=== PATIENT | male | born 1955 | race Caucasian/White ===

== ENCOUNTER 2019-03-10 19:52 | Inpatient (IN) | payer SELFPAY ==
--- NOTE | 2019-03-10 20:30 | ED ---
Syncope/Near Syncope - HPI Summary HPI Summary: The patient is a 63 y/o M presenting to [facility] arriving by ambulance with a chief complaint of syncope while attending a relative's [employer]. He states that he has had increased EtOH use intermittently for the last 3 days in addition to not eating food following recent family traumatic event after being sober for 9 years. He reports that at the , he started to feel lightheaded, and then he apparently passed out. His last drink was a few hours ago. He additionally reports nausea and vomiting, as well as CP that has resolved. He denies SOB and abd pain. He did not hit his head. Hx of HTN and heart arrhythmia. He is still feeling lightheaded in the ED. - History Of Current Complaint Chief Complaint: EDSyncope Time Seen by Provider: 03/10/19 20:03 Hx Obtained From: Patient Onset/Duration: Sudden Onset, Still Present - lightheadedness Context: Witnessed Activity At Onset: At Rest Associated Head Trauma: No Aggravating Factor(s): Other - increased EtOH use without eating Alleviating Factor(s): Nothing Associated Signs And Symptoms: Chest Pain - resolved, Lightheadedness, Vomiting , Other - POSITIVE: nausea, decreased food consumption; NEGATIVE: SOB, abd pain - Allergies/Home Medications Allergies/Adverse Reactions: Allergies Allergy/AdvReac Type Severity Reaction Status Date / Time No Known Allergies Allergy Verified 03/10/19 19:58 Home Medications: Home Medications Amlodipine Besylate [Norvasc] 5 mg PO DAILY 03/10/19 [History Confirmed 03/10/19 ] Losartan/HCTZ 100/25 (NF) [Hyzaar 100/25 (NF)] 1 tab PO DAILY 03/10/19 [History Confirmed 03/10/19] Metoprolol Succinate XL TAB* [Toprol XL TAB*] 100 mg PO DAILY 03/10/19 [History Confirmed 03/10/19] PMH/Surg Hx/FS Hx/Imm Hx Cardiovascular History: Reports: Hx Hypertension, Other Cardiovascular Problems/ Disorders - heart arrhythmia Psychiatric History: Reports: Hx Substance Abuse - alchoholism Infectious Disease History: No Infectious Disease History: Denies: Traveled Outside the [place] in Last 30 Days - Family History Known Family History: Positive: Hypertension - Social History Alcohol Use: increased used in last three days Hx Substance Use: No Substance Use Type: Reports: None Hx Tobacco Use: No Smoking Status (MU): Never Smoked Tobacco Review of Systems Positive: Chest Pain - resolved Negative: Shortness Of Breath Positive: Vomiting, Nausea, Other - no appetite Neurological: Other - lightheaded Positive: Other - increased EtOH use All Other Systems Reviewed And Are Negative: Yes Physical Exam - Summary Physical Exam Summary: Constitutional: Well-developed, Well-nourished, Alert. (-) Distressed Skin: Warm, Dry HENT: Normocephalic; Atraumatic Eyes: Conjunctiva normal Neck: Musculoskeletal ROM normal neck. (-) JVD, (-) Stridor, (-) Tracheal deviation Cardio: Rhythm regular, rate normal, Heart sounds normal; Intact distal pulses; The pedal pulses are 2+ and symmetric. Radial pulses are 2+ and symmetric. (-) Murmur Pulmonary/Chest wall: Effort normal. (-) Respiratory distress, (-) Wheezes, (-) Rales Abd: Soft, (-) tenderness, (-) Distension, (-) Guarding, (-) Rebound Musculoskeletal: (-) Edema Lymph: (-) Cervical adenopathy Neuro: Alert, Oriented x3 Psych: Mood and affect Normal, Tremulous and Anxious Triage Information Reviewed: Yes Vital Signs On Initial Exam: Initial Vitals Temp Pulse Resp BP Pulse Ox 97.5 F 90 20 144/111 98 03/10/19 19:55 03/10/19 19:55 03/10/19 19:55 03/10/19 19:55 03/10/19 19:55 Vital Signs Reviewed: Yes Diagnostics - Vital Signs Vital Signs Temp Pulse Resp BP Pulse Ox 03/10/19 19:55 97.5 F 90 20 144/111 98 - Laboratory Result Diagrams: 03/10/19 20:53 03/10/19 20:53 Lab Statement: Any lab studies that have been ordered have been reviewed, and results considered in the medical decision making process. - Radiology CXR Radiology Interpretation Completed By: Radiologist Summary of Radiographic Findings: No acute process. ED physician has reviewed this report. - EKG 20:10 Cardiac Rate: NL - 88 BPM EKG Rhythm: Sinus Rhythm Summary of EKG Findings: Normal sinus rhythm at 88 bpm, normal KS, normal QRS, normal QTc, normal axis, normal ST, normal T-waves, normal EKG. Course/Dx Assessment/Plan: The patient is a 63 y/o M presenting to [facility] arriving by ambulance with a chief complaint of three episodes of syncope after drinking EtOH for the last three days without much food consumption. Upon the physical exam, the patient appears to be tremulous and anxious. In the ED course, the patient was administered Ns and Ativan. Blood work reveals WBC of 11.5, Hgb of 12.5, Hct of 37, RDW of 16, MPV of 7.3, abs neuts of 9.5, sodium of 115, chloride of 80, anion gap of 12, glucose of 113, lactic acid of 3.4, total bili of 1.1. UA reveals protein, ketones, hyaline casts, and urine glucose. Toxicology reveals serum alcohol of 83. EKG is normal. CXR shows no acute process. I spoke with Dr. Tatum, hospitalist, at 21:30 concerning patients lab work; she accepts him for admission. He is diagnosed with hyponatremia, lactic acidosis, alcohol intoxication, alcoholism, and dehydration. Patient agrees with this plan and understands the need for admission at this time. alcohol intoxication/alcoholism requesting detox: admit for CIWA. lactic acidosis: IVF. hyponatremia: free water restrict. Admission - Diagnoses Differential Diagnosis/HQI/PQRI: Positive: Cerebral Vascular Accident Provider Diagnoses: Hyponatremia, Lactic acidosis, Alcohol intoxication, Alcoholism, Dehydration - Physician Notifications Discussed Care of Patient With: Amanda Tatum - hospitalist Time Discussed With Above Provider: 21:30 Instructed by Provider To: MD Will See In ED - Patient accepted for admission. Admit/Transition Orders Completed By ED Provider: No Discharge - Sign-Out/Discharge Documenting (check all that apply): Patient Departure - Patient will be admitted to [facility] for further care by Dr. Tatum. Patient Received Moderate/Deep Sedation with Procedure: No - Discharge Plan Condition: Stable Disposition: ADMITTED TO [facility] Referrals: No Primary Care Phys,NOPCP [Primary Care Provider] - - Billing Disposition and Condition Condition: STABLE Disposition: Admitted to [facility] - Attestation Statements Document Initiated by Scribe: Yes Documenting Scribe: Josie Sam Provider For Whom Scribe is Documenting (Include Credential): Dr. Andie Wilson MD Scribe Attestation: Josie Lee, scribed for Dr. Andie Wilson MD on 03/10/19 at 2221. Scribe Documentation Reviewed: Yes Provider Attestation: The documentation as recorded by the scribe, Josie Sam accurately reflects the service I personally performed and the decisions made by me, Dr. Andie Wilson MD Status of Scribe Document: Viewed
[2019-03-10 20:59] LABS: ABS Basophils 0.1 10^3/ul (0-0.2); ABS Lymphocytes 1.2 10^3/ul (1.0-4.8); ABS Monocytes 0.7 10^3/ul (0-0.8); ABS Neutrophils 9.5 10^3/ul (1.5-7.7); Eosinophil % 0.2 %; Hematocrit 37 % (42-52); Hemoglobin 12.5 g/dL (14.0-18.0); Lymphocyte % 10.3 %; Mean Corpuscular HGB Conc 34 g/dL (31-36); Mean Corpuscular Hemoglobin 28 pg (27-31); Mean Corpuscular Volume 81 fL (80-94); Mean Platelet Volume 7.3 fL (7.4-10.4); Nucleated Red Blood Cells % 0.1; Platelet Count 348 10^3/uL (150-450); Red Blood Count 4.53 10^6 /uL (4.18-5.48); Red Cell Distribution Width 16 % (10.5-15); White Blood Count 11.5 10^3/uL (3.5-10.8)
[2019-03-10 21:20] LABS: ALT 10 U/L (7-52); AST 17 U/L (13-39); Albumin 4.2 g/dL (3.2-5.2); Albumin/Globulin Ratio 1.6 (1-3); Alkaline Phosphatase 52 U/L (34-104); BUN/Creatinine Ratio 9.7 (8-20); Blood Urea Nitrogen 9 mg/dL (6-24); CO2 Carbon Dioxide 23 mmol/L (22-32); Calcium 9.2 mg/dL (8.6-10.3); Chloride 80 mmol/L (101-111); EGFR African American 99.3 (>60); EGFR Non-African American 82.1 (>60); Globulin 2.7 g/dL (2-4); Glucose 113 mg/dL (70-100); Potassium 3.6 mmol/L (3.5-5.0); Total Protein 6.9 g/dL (6.4-8.9)
[2019-03-10 21:21] LABS: Troponin I 0.03 ng/mL (<0.04)
[2019-03-10 21:25] LABS: Anion Gap 12 mmol/L (2-11); Sodium 115 mmol/L (135-145)
[2019-03-10] MEDS ORDERED: NS 0.9% 1000 ML** 2,520 ML IV ONE (21:30)
[2019-03-10 21:33] LABS: Acetaminophen < 15 mcg/mL; Alcohol 83 mg/dL (<10); Salicylate < 2.50 mg/dL (<30)
[2019-03-10 21:38] LABS: Urine Appearance Clear; Urine Bacteria Absent (Absent); Urine Bilirubin Negative (Negative); Urine Blood Negative (Negative); Urine Color Yellow; Urine Glucose 1+(50 mg/dL) (Negative); Urine Ketones Trace (Negative); Urine Nitrite Negative (Negative); Urine Protein 1+(30 mg/dL) (Negative); Urine Red Blood Cell Trace(0-2/hpf) (Absent); Urine Specific Gravity 1.011 (1.010-1.030); Urine Urobilinogen Negative (Negative); Urine White Blood Cell Trace(0-5/hpf) (Absent)
[2019-03-10] MEDS ORDERED: LORazepam INJ* 2 MG/ML 1 ML VIAL IV PUSH ONE (21:44)
[2019-03-10] MEDS ORDERED: Lorazepam PYXIS KEY PRN (21:44)
[2019-03-10 21:48] LABS: TSH (Thyroid Stimulating Horm) 1.64 mcIU/mL (0.34-5.60)
[2019-03-10 21:50] LABS: Urine Benzodiazepine Screen None Detected (None Detect); Urine Opiates Screen None Detected (None Detect)
[2019-03-10] MEDS ORDERED: Lorazepam PYXIS KEY ONE (21:51)
[2019-03-10] MEDS ORDERED: Thiamine IV* 100 MG/ML 2 ML VIAL IM ONE (22:14)
[2019-03-10] MEDS ORDERED: Acetaminophen TAB* 325 MG PO PRN ×2 (22:14→22:19)
[2019-03-10] MEDS ORDERED: NS 0.9% 1000 ML** 1,000 ML IV SCH (22:15)
[2019-03-10] MEDS ORDERED: hydrALAZINE IV* 20 MG/ML VIAL IV SLOW PU PRN (22:18)
[2019-03-10] MEDS ORDERED: Magnesium Hydroxide LIQ* 30 ML UDC PO PRN (22:19)
[2019-03-10] MEDS ORDERED: Al Hydrox/Mg Hydrox/Simet LIQ* 30 ML UDC PO PRN (22:19)
[2019-03-10 22:24] LABS: Activated Partial Thrombo Time 31.5 seconds (26.0-36.3); INR 1.08 (0.82-1.09)
[2019-03-10 22:33] LABS: BUN/Creatinine Ratio 10.6 (8-20); Calcium 8.8 mg/dL (8.6-10.3); EGFR African American 110.2 (>60); Potassium 3.4 mmol/L (3.5-5.0)
[2019-03-10] MEDS ORDERED: Magnesium Sulfate 2 GM IV* 2 GM/50 ML BAG IVPB ONE (22:37)
[2019-03-10] MEDS ORDERED: Potassium Chlor TAB* 20 MEQ TAB.ER PO ONE (22:37)
[2019-03-10 22:58] LABS: Magnesium 1.5 mg/dL (1.9-2.7)
[2019-03-10] MEDS ORDERED: LORazepam TAB(*) 1 MG PO SCH (23:00)
[2019-03-10] MEDS ORDERED: Metoprolol Tartrate TAB* 25 MG PO SCH (23:00)
--- NOTE | 2019-03-11 00:23 | HP ---
HISTORY AND PHYSICAL: DATE OF ADMISSION: 03/10/19 PRIMARY CARE PROVIDER: None locally. CHIEF COMPLAINT: Dizziness and passing out. HISTORY OF PRESENT ILLNESS: Herminio Munoz is a 63-year-old male with history of alcoholism, who admits to binge drinking as well as hypertension, who presented today for syncopal episodes. The patient stated that he was suffered for several months until 2 weeks ago when he got to know that his nephew who lives in [place] . He stated that he took on an [employer] train from [place] where he lives for the nephew's and he arrived today in the morning. He stated that for the past 2 weeks he has been drinking various quantities of alcohol beverages, mostly including beer and vodka. He drank more in the train. Today, when he was standing up at [facility], every time he tried to stand up, he would sit back down and there was 1 episode where he lost consciousness. Sister who was nearby but did not witness the episode by itself, stated that the patient has not had any incontinence and no tremors that could have been seizures. The patient's sodium upon arrival to the ED was 116. He is going to be admitted to the intensive care unit for severe hyponatremia. He stated that he has not eaten anything for the past at least 48 hours apart from drinking beer. PAST MEDICAL HISTORY: 1. Hypertension. 2. History of costochondritis like recurrent pain with stress test noted a year ago that was normal as per the patient and cardiac catheterization 7 years ago, which showed minimal coronary artery disease. 3. History of alcoholism. The patient has drunk most of his adult life, has history of alcohol withdrawal seizures. 4. History of hypertension. ALLERGIES: No known drug allergies. MEDICATIONS: 1. Toprol-XL 100 mg daily. 2. Amlodipine 5 mg daily. 3. Losartan/hydrochlorothiazide 100/25 one tablet daily. FAMILY HISTORY: Father in his mid 60s secondary to lung cancer. Mother in her 80s secondary to kidney disease. SOCIAL HISTORY: The patient is an alcoholic, admits to binge drinking. He lives with his in [place]. He is currently in social security and is not working. He used to be a pharmacy delivery driver. He smoked tobacco anywhere from half pack a day to 1 pack a day for 30 years and he quit 20 years ago. He denies any drug use. As a surrogate, he is naming his , who is currently in [place], Mar Munoz, phone [phone] as well as the patient's sister, Nat Artis, with a phone number [phone]. REVIEW OF SYSTEMS: Please see the history of present illness. All the remaining 12 systems were reviewed with the patient and were otherwise negative. PHYSICAL EXAMINATION GENERAL: The patient is a very pleasant 63-year-old male who is in no acute distress. Alert, awake, and oriented x3. VITAL SIGNS: Blood pressure 176/94, heart rate 95 and regular, respiratory rate 15, oxygen saturation 98% on room air, temperature of 97.9. HEENT: Head: Atraumatic, normocephalic. Eyes: Pupils are equal and reactive to light and accommodation. Oropharynx clear. Mucosa moist. NECK: Supple. No JVD, no bruits bilaterally. RESPIRATORY: Clear to auscultation bilaterally. CARDIOVASCULAR: Regular rate and rhythm. No murmur. ABDOMEN: Soft, nontender. Bowel sounds are present in all 4 quadrants. EXTREMITIES: There is no edema. Pulses are +2 bilaterally. No clubbing or cyanosis. NEUROLOGIC: On neuro evaluation, speech is clear. Cranial nerves II through XII grossly intact. Motor strength is 5/5 bilaterally. DIAGNOSTIC STUDIES/LAB DATA: Laboratory data and studies performed in the ED included portable chest x-ray, read by myself prior to the official radiologist' s report, showed normal cardiac silhouette with no evidence of pulmonary infiltrates. The patient's EKG showed normal sinus rhythm with a heart rate of 88 beats per minute with no significant ST changes. Sodium of 115, potassium 3.6, chloride 80, carbon dioxide 23, BUN 9, creatinine 0.93. Liver function tests unremarkable. Bilirubin 1.1. TSH of 1.64. Repeat outpatient lab work 2 hours later after close to 2.5 L of intravenous fluids bolused in the ED showed sodium of 118, potassium 3.4, chloride 85, carbon dioxide 20, BUN 9, creatinine 0.85. ASSESSMENT AND PLAN: 1. The patient is hypochloremic, hyponatremia likely due to prerenal causes, but also suspected excessive beer drinking and beer potomania. The patient received intravenous hydration in the ED and his sodium improved. I suspect his near syncope may be due to more dehydration and malnutrition than symptomatic hyponatremia per se. At this point, I will not institute 3% sodium chloride solution replacement, but continue normal saline replacement with basic metabolic panel to be drawn every 4 hours. The patient is going to be in the ICU. Seizure precautions at this point for that. 2. Due to history of alcoholism, alcohol withdrawal seizures, the patient is going to be placed on Ativan withdrawal protocol with Ativan taper due to alcoholic seizures. Thiamine and folate is going to be ordered also. 3. For the patient's hypertension, the patient is going to be continued on his Toprol and amlodipine with addition to hydralazine. For the time being, the hydrochlorothiazide and losartan are going to be held. 4. For DVT prophylaxis, the patient is going to be placed on heparin subcutaneously. 5. The patient's code status is full. His surrogate is his and he also asked his sister to be informed. 6. The patient has problems with insurance. He stated that he is self-pay. He is very concerned about it. Also, due to his history of alcoholism, social research assistant was asked to consult the patient. TIME SPENT: Approximately 80 minutes was spent on admission of this patient, more than half that time was spent [id number] with the patient during the interview and physical exam. [id number]/[facility] #: [id number] RUFINA
[2019-03-11] MEDS: LORazepam TAB(*) 1 MG PO SCH ×3 (02:04→15:55)
[2019-03-11 03:43] LABS: ABS Eosinophils 0.1 10^3/ul (0-0.6); ABS Lymphocytes 1.9 10^3/ul (1.0-4.8); ABS Monocytes 1.1 10^3/ul (0-0.8); ABS Neutrophils 6.6 10^3/ul (1.5-7.7); Eosinophil % 1.1 %; Hematocrit 33 % (42-52); Hemoglobin 11.2 g/dL (14.0-18.0); Lymphocyte % 19.6 %; Mean Corpuscular HGB Conc 34 g/dL (31-36); Mean Corpuscular Hemoglobin 28 pg (27-31); Mean Corpuscular Volume 81 fL (80-94); Mean Platelet Volume 7.4 fL (7.4-10.4); Platelet Count 335 10^3/uL (150-450); Red Blood Count 4.08 10^6 /uL (4.18-5.48); Red Cell Distribution Width 16 % (10.5-15); White Blood Count 9.7 10^3/uL (3.5-10.8)
[2019-03-11 03:55] LABS: BUN/Creatinine Ratio 9.7 (8-20); Calcium 8.6 mg/dL (8.6-10.3); EGFR African American 99.3 (>60); EGFR Non-African American 82.1 (>60); Potassium 3.4 mmol/L (3.5-5.0)
[2019-03-11 03:58] LABS: Troponin I 0.03 ng/mL (<0.04)
[2019-03-11] MEDS ORDERED: Potassium Chlor TAB* 20 MEQ TAB.ER PO ONE (05:10)
[2019-03-11] MEDS: Heparin VIAL(*) 5000 UNITS/ML VIAL (FIVE THOUSAND) SUBCUT SCH ×3 (05:38→21:39)
[2019-03-11] MEDS: Folic Acid TAB* 1 MG PO SCH (08:39)
[2019-03-11] MEDS: Multivitamins/Minerals TAB PO SCH (08:40)
[2019-03-11] MEDS: amLODIPine TAB* 5 MG PO SCH (08:40)
[2019-03-11] MEDS: Magnesium Oxide TAB* 400 MG PO SCH (08:40)
[2019-03-11] MEDS: Metoprolol Succinate XL TAB* 100 MG PO SCH (08:40)
[2019-03-11] MEDS: Thiamine TAB* 100 MG TAB PO SCH (08:40)
[2019-03-11 09:59] LABS: BUN/Creatinine Ratio 10.8 (8-20); Calcium 8.6 mg/dL (8.6-10.3); EGFR African American 99.3 (>60); EGFR Non-African American 82.1 (>60)
[2019-03-11 11:10] LABS: Calcium 8.7 mg/dL (8.6-10.3)
[2019-03-11 11:13] LABS: Free T4 1.1 ng/dL (0.61-1.12)
[2019-03-11 11:16] LABS: BUN/Creatinine Ratio 10.2 (8-20); EGFR African American 93.5 (>60); EGFR Non-African American 77.2 (>60)
[2019-03-11 11:42] LABS: Urine Potassium Concentration 8.3 mmol/L
[2019-03-11 11:50] LABS: Ur Urea Nitrogen Concentration 200 mg/dL; Urine Sodium Concentration < 18 mmol/L
[2019-03-11 12:00] LABS: Potassium 4.4 mmol/L (3.5-5.0)
[2019-03-11 14:17] LABS: BUN/Creatinine Ratio 11.8 (8-20); Calcium 8.5 mg/dL (8.6-10.3); EGFR African American 89.3 (>60); EGFR Non-African American 73.8 (>60); Potassium 3.9 mmol/L (3.5-5.0)
--- NOTE | 2019-03-11 16:40 | PN ---
Subjective Date of Service: 03/11/19 Interval History: Pt seen and examined. Meds and labs reviewed. CC: N/A ROS: Denied LUBIN/dizziness, F/C, N/V, CP, SOB, increased cough, sputum production , abd pain, diarrhea, constipation, dysuria, myalgias, arthralgias, throat pain , and new skin lesions. The rest of the 14 point ROS are unremarkable. PHYSICAL EXAM: GEN APPEARANCE: Awake, not in acute distress HEENT: NC/AT, PERRLA, moist oral mucosa, (-) throat erythema NECK: Soft, supple, (-) cervical LAD, (-)JVD HEART: S1S2 WNL, RRR, No MRG CHEST: CTA, BL, GAE, No W/R/R ABD: Soft, ND/NT, NABS 4x Q EXT: No C/C/E SKIN: Warm to touch PSYCH: No active psychosis, hallucinations, depression, SI/HI Objective Active Medications: Acetaminophen (Tylenol Tab*) 650 mg PO Q4H PRN PRN Reason: FEVER/PAIN Al Hydrox/Mg Hydrox/Simethicone (Maalox Plus*) 30 ml PO Q6H PRN PRN Reason: INDIGESTION Amlodipine Besylate (Norvasc Tab*) 10 mg PO DAILY [facility] Last Admin: 03/11/19 08:40 Dose: 10 mg Folic Acid (Folvite Tab*) 1 mg PO DAILY [facility] Last Admin: 03/11/19 08:39 Dose: 1 mg Heparin Sodium (Porcine) (Heparin Vial(*)) 5,000 units SUBCUT Q8HR [facility] Last Admin: 03/11/19 13:41 Dose: 5,000 units Hydralazine HCl (Apresoline Iv*) 5 mg IV SLOW PU Q6H PRN PRN Reason: HTN Lorazepam (Ativan Tab(*)) 0 - 6 mg PO .[facility] PROTOCOL [facility]; Protocol Lorazepam (Ativan Tab(*)) 2 mg PO Q12H [facility]; Taper Stop: 03/13/19 18:59 Last Admin: 03/11/19 15:55 Dose: 2 mg Magnesium Hydroxide (Milk Of Magnesia Liq*) 30 ml PO Q4H PRN PRN Reason: CONSTIPATION Magnesium Oxide (Magox 400 Tab*) 800 mg PO DAILY [facility] Last Admin: 03/11/19 08:40 Dose: 800 mg Metoprolol Succinate (Toprol Xl Tab*) 100 mg PO DAILY [facility] Last Admin: 03/11/19 08:40 Dose: 100 mg Miscellaneous (Ativan Pyxis Regalado) 1 ea N/A .ATIVAN IV REGALADO PRN PRN Reason: PYXIS REGALADO Multivitamins/Minerals (Theragran/Minerals Tab*) 1 tab PO DAILY [facility] Last Admin: 03/11/19 08:40 Dose: 1 tab Thiamine HCl (Vitamin B-1 Tab*) 100 mg PO DAILY [facility] Last Admin: 03/11/19 08:40 Dose: 100 mg Vital Signs - 8 hr 03/11/19 03/11/19 03/11/19 08:39 09:00 10:00 Temperature Pulse Rate 101 86 Respiratory 14 17 16 Rate Blood Pressure 145/96 (mmHg) O2 Sat by Pulse 96 95 Oximetry 03/11/19 03/11/19 03/11/19 10:11 11:00 12:00 Temperature 99.2 F Pulse Rate 84 79 80 Respiratory 18 15 22 Rate Blood Pressure 123/71 133/76 (mmHg) O2 Sat by Pulse 96 95 96 Oximetry 03/11/19 03/11/19 03/11/19 12:15 13:00 14:00 Temperature Pulse Rate 82 70 87 Respiratory 18 19 18 Rate Blood Pressure 127/80 120/69 127/70 (mmHg) O2 Sat by Pulse 97 90 93 Oximetry 03/11/19 03/11/19 15:00 15:55 Temperature 98.9 F Pulse Rate 74 Respiratory 15 14 Rate Blood Pressure 107/62 (mmHg) O2 Sat by Pulse 94 Oximetry Oxygen Devices in Use Now: None Result Diagrams: 03/11/19 03:28 03/11/19 15:55 Microbiology and Other Data: Microbiology 03/11/19 00:02 Nasal Screen MRSA (PCR) - Final Nasal Mrsa Not Detected Assess/Plan/Problems-Billing Assessment: - Patient Problems (1) Hyponatremia Current Visit: Yes Status: Acute Code(s): E87.1 - HYPO-OSMOLALITY AND HYPONATREMIA SNOMED Code(s): 03965558 Comment: #Euvolemic hyponatremia: -History and PE is suggestive of beer potomania vs possible DHN to due to hyperchloremia especially given urine s.g. in the lower limits of normal on admission; pt was also receiving normal saline for hyperchloremia; however, this was D/Cd this AM and pt placed on fluid restriction given euvolemia -Urine osm, however, today suggests SIADH with low urine Sodium and Uosm>100; CXR in NAD -Given recent long bus trip to [place], will obtain at least D-dimer given recent syncopal episode given pt does not seep to complain of CP and/or SOB; together with possible SIADH, consider pulmonary cause not otherwise seen on CXR in AM if w/elevated D-dimer for age? However, it is also possible that NS has improved urine lytes since admission and on presentation had beer potomania -Improving Sodium levels w/1L fluid restriction---for repeat testingawaiting labs to see if can de-escalate restriction (2) Alcohol intoxication Current Visit: Yes Status: Acute Comment: -Advised life-style modifications -[facility] place [facility] protocol -Continue watchful waiting (3) HTN (hypertension) Current Visit: Yes Status: Acute Code(s): I10 - ESSENTIAL (PRIMARY) HYPERTENSION SNOMED Code(s): 32904533 Comment: -Well-controlled -Continue Amlodipine and Metoprolol (4) DVT prophylaxis Current Visit: Yes Status: Acute Code(s): Z29.9 - ENCOUNTER FOR PROPHYLACTIC MEASURES, UNSPECIFIED SNOMED Code(s): 803208211 Comment: -Continue Heparin SQ Status and Disposition: -For transfer to -May go off tele for tests and/or transfers
[2019-03-11 18:46] LABS: BUN/Creatinine Ratio 10.9 (8-20); Calcium 8.6 mg/dL (8.6-10.3); EGFR African American 68.1 (>60); EGFR Non-African American 56.3 (>60); Potassium 4.1 mmol/L (3.5-5.0)
[2019-03-11] MEDS ORDERED: LORazepam TAB(*) 1 MG PO PRN (19:38)
--- NOTE | 2019-03-11 19:39 | PN ---
Progress Note - Progress Note Date of Service: 03/11/19 Note: D/w RN, pt had not used [facility] in the past 24H. [facility]
[2019-03-11 22:54] LABS: BUN/Creatinine Ratio 13.2 (8-20); Calcium 8.6 mg/dL (8.6-10.3); EGFR African American 68.1 (>60); EGFR Non-African American 56.3 (>60); Potassium 4.2 mmol/L (3.5-5.0)
[2019-03-12] MEDS: LORazepam TAB(*) 1 MG PO SCH ×2 (03:31→14:30)
[2019-03-12 05:56] LABS: ABS Basophils 0.1 10^3/ul (0-0.2); ABS Eosinophils 0.3 10^3/ul (0-0.6); ABS Lymphocytes 2.2 10^3/ul (1.0-4.8); ABS Neutrophils 4.2 10^3/ul (1.5-7.7); Eosinophil % 4.3 %; Hematocrit 33 % (42-52); Hemoglobin 11.1 g/dL (14.0-18.0); Lymphocyte % 27.8 %; Mean Corpuscular HGB Conc 34 g/dL (31-36); Mean Corpuscular Hemoglobin 28 pg (27-31); Mean Corpuscular Volume 83 fL (80-94); Mean Platelet Volume 8.1 fL (7.4-10.4); Platelet Count 296 10^3/uL (150-450); Red Blood Count 4.02 10^6 /uL (4.18-5.48); Red Cell Distribution Width 16 % (10.5-15); White Blood Count 7.8 10^3/uL (3.5-10.8)
[2019-03-12] MEDS: Heparin VIAL(*) 5000 UNITS/ML VIAL (FIVE THOUSAND) SUBCUT SCH ×3 (06:12→21:34)
[2019-03-12 06:21] LABS: Albumin 3.4 g/dL (3.2-5.2); Albumin/Globulin Ratio 1.5 (1-3); BUN/Creatinine Ratio 13.6 (8-20); Calcium 8.5 mg/dL (8.6-10.3); EGFR African American 75.4 (>60); EGFR Non-African American 62.3 (>60); Globulin 2.3 g/dL (2-4); Phosphorus 2.3 mg/dL (2.5-5.0); Potassium 3.9 mmol/L (3.5-5.0); Total Bilirubin 0.7 mg/dL (0.2-1.0); Total Protein 5.7 g/dL (6.4-8.9)
[2019-03-12] MEDS: Folic Acid TAB* 1 MG PO SCH (07:44)
[2019-03-12] MEDS: Multivitamins/Minerals TAB PO SCH (07:45)
[2019-03-12] MEDS: Thiamine TAB* 100 MG TAB PO SCH (07:45)
[2019-03-12] MEDS: Metoprolol Succinate XL TAB* 100 MG PO SCH (07:45)
[2019-03-12] MEDS: Magnesium Oxide TAB* 400 MG PO SCH (07:45)
[2019-03-12] MEDS: amLODIPine TAB* 5 MG PO SCH (07:45)
--- NOTE | 2019-03-12 15:38 | PN ---
Subjective Date of Service: 03/12/19 Interval History: Pt seen and examined. Meds and labs reviewed. CC: N/A ROS: Denied LUBIN/dizziness, F/C, N/V, CP, SOB, increased cough, sputum production , abd pain, diarrhea, constipation, dysuria, myalgias, arthralgias, throat pain , and new skin lesions. The rest of the 14 point ROS are unremarkable. PHYSICAL EXAM: GEN APPEARANCE: Awake, not in acute distress HEENT: NC/AT, PERRLA, moist oral mucosa, (-) throat erythema NECK: Soft, supple, (-) cervical LAD, (-)JVD HEART: S1S2 WNL, RRR, No MRG CHEST: CTA, BL, GAE, No W/R/R ABD: Soft, ND/NT, NABS 4x Q EXT: No C/C/E SKIN: Warm to touch PSYCH: No active psychosis, hallucinations, depression, SI/HI Objective Active Medications: Acetaminophen (Tylenol Tab*) 650 mg PO Q4H PRN PRN Reason: FEVER/PAIN Al Hydrox/Mg Hydrox/Simethicone (Maalox Plus*) 30 ml PO Q6H PRN PRN Reason: INDIGESTION Amlodipine Besylate (Norvasc Tab*) 10 mg PO DAILY [facility] Last Admin: 03/12/19 07:45 Dose: 10 mg Folic Acid (Folvite Tab*) 1 mg PO DAILY [facility] Last Admin: 03/12/19 07:44 Dose: 1 mg Heparin Sodium (Porcine) (Heparin Vial(*)) 5,000 units SUBCUT Q8HR [facility] Last Admin: 03/12/19 14:30 Dose: 5,000 units Hydralazine HCl (Apresoline Iv*) 5 mg IV SLOW PU Q6H PRN PRN Reason: HTN Sodium Chloride (Ns 0.9% 1000 Ml) 1,000 mls @ 75 mls/hr IV PER RATE BOB Stop: 03/14/19 05:04 Lorazepam (Ativan Tab(*)) 2 mg PO Q12H [facility]; Taper Stop: 03/13/19 18:59 Last Admin: 03/12/19 14:30 Dose: 2 mg Lorazepam (Ativan Tab(*)) 1 mg PO Q4H PRN PRN Reason: ANXIETY Magnesium Hydroxide (Milk Of Magnesia Liq*) 30 ml PO Q4H PRN PRN Reason: CONSTIPATION Magnesium Oxide (Magox 400 Tab*) 800 mg PO DAILY [facility] Last Admin: 03/12/19 07:45 Dose: 800 mg Metoprolol Succinate (Toprol Xl Tab*) 100 mg PO DAILY [facility] Last Admin: 03/12/19 07:45 Dose: 100 mg Miscellaneous (Ativan Pyxis Regalado) 1 ea N/A .ATIVAN IV REGALADO PRN PRN Reason: PYXIS REGALADO Multivitamins/Minerals (Theragran/Minerals Tab*) 1 tab PO DAILY [facility] Last Admin: 03/12/19 07:45 Dose: 1 tab Thiamine HCl (Vitamin B-1 Tab*) 100 mg PO DAILY [facility] Last Admin: 03/12/19 07:45 Dose: 100 mg Vital Signs - 8 hr 03/12/19 03/12/19 03/12/19 09:50 09:59 11:11 Temperature 97.5 F Pulse Rate 80 88 71 Respiratory 16 Rate Blood Pressure 139/71 119/75 122/66 (mmHg) O2 Sat by Pulse 100 100 Oximetry 03/12/19 03/12/19 14:30 15:34 Temperature 98.2 F Pulse Rate 66 Respiratory 18 16 Rate Blood Pressure 107/60 (mmHg) O2 Sat by Pulse 100 Oximetry Oxygen Devices in Use Now: None Result Diagrams: 03/12/19 04:51 03/12/19 14:02 Microbiology and Other Data: Microbiology 03/11/19 00:02 Nasal Screen MRSA (PCR) - Final Nasal Mrsa Not Detected Assess/Plan/Problems-Billing Assessment: - Patient Problems (1) Hyponatremia Current Visit: Yes Status: Acute Code(s): E87.1 - HYPO-OSMOLALITY AND HYPONATREMIA SNOMED Code(s): 04098726 Comment: #Euvolemic hyponatremia: -History and PE is suggestive of beer potomania vs possible DHN to due to hypochloremia especially given urine s.g. in the lower limits of normal on admission; pt was also receiving normal saline for hypochloremia; however, this was D/Cd this AM and pt placed on fluid restriction given euvolemia -Urine osm, however, today suggests SIADH with low urine Sodium and Uosm>100; however, unclear whether UOsm would have been affected w/NS given on presentation; CXR in NAD -FE-Urea =57.31% and suggestive of euvolemia -D-dimer WNL -Improving Sodium levels w/1L fluid restriction---for repeat testingawaiting labs to see if can de-escalate restriction -Hypochloremia possibly due to dilute PO fluids/alcohol imbibed in trip and Urine Osm may have normalized with initial NS given (2) Syncope Current Visit: Yes Status: Acute Code(s): R55 - SYNCOPE AND COLLAPSE SNOMED Code(s): 792404042 Comment: -D-dimer R/O PE/VTE as cause -2D echo (02/02/19; from [facility], [place]): LV normal; mild concentric LVH; EF =60%, grade I diastolic dysfunction; mild MR and TR; moderate AR -Carotid U/S (02/01/19; from same hospital above): <50% PATRICIO on BL ICA -Pt found to be orthostatic -Euvolemic hyponatremia improving -Likely cause of syncope is orthostasis in the setting of hyponatremia; given urine Osm is lower than Osm of NS at 308, one would expect that sodium would continue to improve with PO fluid restriction in place to address orthostasis in the setting of hyponatremia (3) Alcohol intoxication Current Visit: Yes Status: Acute Comment: -Advised life-style modifications -Continue watchful waiting (4) HTN (hypertension) Current Visit: Yes Status: Acute Code(s): I10 - ESSENTIAL (PRIMARY) HYPERTENSION SNOMED Code(s): 97077251 Comment: -Well-controlled -Continue Amlodipine and Metoprolol (5) DVT prophylaxis Current Visit: Yes Status: Acute Code(s): Z29.9 - ENCOUNTER FOR PROPHYLACTIC MEASURES, UNSPECIFIED SNOMED Code(s): 034834364 Comment: -Continue Heparin SQ Status and Disposition: -Will await PT eval -For repeat orthostatic VS in AM -For possible D/C in 1-2 days
[2019-03-12] MEDS: NS 0.9% 1000 ML** 1,000 ML IV SCH (15:53)
[2019-03-13] MEDS: LORazepam TAB(*) 1 MG PO SCH (03:14)
[2019-03-13] MEDS: NS 0.9% 1000 ML** 1,000 ML IV SCH (05:40)
[2019-03-13] MEDS: Heparin VIAL(*) 5000 UNITS/ML VIAL (FIVE THOUSAND) SUBCUT SCH (05:41)
[2019-03-13 06:38] LABS: ABS Basophils 0.3 10^3/ul (0-0.2); ABS Eosinophils 0.4 10^3/ul (0-0.6); ABS Lymphocytes 2.1 10^3/ul (1.0-4.8); ABS Monocytes 0.9 10^3/ul (0-0.8); ABS Neutrophils 3.9 10^3/ul (1.5-7.7); Eosinophil % 5.6 %; Hematocrit 31 % (42-52); Hemoglobin 10.4 g/dL (14.0-18.0); Lymphocyte % 27.7 %; Mean Corpuscular HGB Conc 33 g/dL (31-36); Mean Corpuscular Hemoglobin 28 pg (27-31); Mean Corpuscular Volume 83 fL (80-94); Mean Platelet Volume 8.3 fL (7.4-10.4); Platelet Count 284 10^3/uL (150-450); Red Blood Count 3.76 10^6 /uL (4.18-5.48); Red Cell Distribution Width 16 % (10.5-15); White Blood Count 7.6 10^3/uL (3.5-10.8)
[2019-03-13 07:00] LABS: Albumin 3.2 g/dL (3.2-5.2); Albumin/Globulin Ratio 1.5 (1-3); Calcium 8.5 mg/dL (8.6-10.3); EGFR African American 76.2 (>60); Globulin 2.2 g/dL (2-4); Magnesium 1.8 mg/dL (1.9-2.7); Phosphorus 2.7 mg/dL (2.5-5.0); Potassium 4.2 mmol/L (3.5-5.0); Total Bilirubin 0.5 mg/dL (0.2-1.0); Total Protein 5.4 g/dL (6.4-8.9)
[2019-03-13 08:51] VITALS: BP 115/78
[2019-03-13] MEDS ORDERED: Magnesium Sulfate 2 GM IV* 2 GM/50 ML BAG IVPB ONE (09:04)
[2019-03-13] MEDS: Metoprolol Succinate XL TAB* 100 MG PO SCH (09:35)
[2019-03-13] MEDS: Multivitamins/Minerals TAB PO SCH (09:36)
[2019-03-13] MEDS: Folic Acid TAB* 1 MG PO SCH (09:36)
[2019-03-13] MEDS: Thiamine TAB* 100 MG TAB PO SCH (09:36)
[2019-03-13] MEDS: amLODIPine TAB* 5 MG PO SCH (09:36)
[2019-03-13] MEDS: Magnesium Oxide TAB* 400 MG PO SCH (09:36)
--- NOTE | 2019-03-13 15:09 | DS ---
ADDENDUM NOW INCLUDED ON THIS REPORT CC: Dr. Amanda Tatum; Andie Wilson MD * DISCHARGE SUMMARY: DATE OF ADMISSION: 03/10/19 DATE OF DISCHARGE: 03/13/19 DISCHARGE CONDITION: Stable. DISCHARGE DISPOSITION: Home. DISCHARGE DIAGNOSES: Are as follows: 1. Euvolemic hypochloremic hyponatremia, improved; likely due to beer potomania. 2. Syncope, multifactorial due to: A. Orthostasis, likely due to autonomic dysfunction. B. Ethanol intoxication/abuse. C. Hyponatremia due to beer potomania. D. Polypharmacy/antihypertensive. 3. Coronary artery disease, history of, minimal per previous cath. 4. Hypomagnesemia, corrected; primary care physician to follow up level in 2 weeks. DISCHARGE MEDICATIONS: Are as follows: 1. Magnesium oxide 800 mg p.o. daily. 2. Metoprolol succinate 100 mg p.o. daily. 3. Multivitamins 1 tab p.o. daily, take only for 1 month. 4. Losartan 40 mg p.o. daily. 5. Omeprazole 20 mg p.o. daily. HISTORY OF PRESENT ILLNESS/HOSPITAL COURSE: The patient is a 63-year-old gentleman with a history of alcoholism, hypertension, and minimal coronary artery disease from previous catheterization 7 years prior without any stents, who presented and admitted on 03/10/19 due to dizziness and syncope. He was subsequently found to have hypochloremic hyponatremia, and on physical exam, the patient did not look dehydrated, although possible mild dehydration in the setting of beer potomania was suspected and was unclear on initial presentation. Given that he mentioned that he has been traveling in a bus from [place] to [place] and has not been eating and has been drinking a lot of beers and vodka on his way. He was initially placed on normal saline, which was subsequently discontinued given his urine lytes is suggestive of beer potomania versus SIADH and his urinary osmolality above 100, but in the low side of urine osmolality along with his diluted specific urine gravity and euvolemia on presentation, when taken together is suggestive of beer potomania that had improvement of Urine Osm due to initial IVF therapy on presentation. Subsequent fluid restriction has improved his sodium levels further and TSH was not suggestive of hypothyroidism and his AM cortisol level was found to be normal. Upon reinstituting fluid restriction, he was placed back on normal saline to correct his hypochloremia. He was also found to be hypomagnesemic and has been corrected and had been given oral supplementations for this. Given he mentioned syncope as well, syncopal workup has been initiated. However , we obtained recent documentations from [facility] regarding previous 2D echo that was just recently done last month. A 2D echo, which reveals left ventricle that was read as normal with mild concentric LVH with an EF of 60% with grade 1 diastolic dysfunction with mild MR and TR and moderate AR. Carotid ultrasound revealed less than 50% carotid artery stenosis on the bilateral internal carotid arteries. He was also found to be orthostatic, which was thought to be the primary contributing factor that led to syncope along with his electrolyte abnormality such as hyponatremia and hypomagnesemia along with him being intoxicated on admission. He had been advised to follow up and/or call his PCP within 3 days post discharge and to repeat his sodium levels in 7 days and to touch base with his PCP and discuss the next best step/any future followup, etc. He was also advised to slowly rise from a supine and/or sitting position to standing position and to try to spend at least 2 to 3 minutes arron his legs as he slowly rises to ambulate. He was informed that given his risks for falls and only minimal history of coronary artery disease without stent, he was advised to discuss the risks and benefits of aspirin/antiplatelet therapy with his PCP. He was advised that if his symptoms resume or develop new ones or feel unwell for any reason to call his PCP first, and if his PCP is unable to entertain him due to scheduling issues alone, to call [facility] if issue is considered nonemergent. He was advised to call my office regarding any questions or concerns or further clarifications regarding his discharge plans and/or prescriptions and to take his medications as prescribed. REVIEW OF SYSTEMS: On review of systems prior to discharge, the patient denied any current headache, dizziness, fever, chills, nausea, vomiting, chest pain, shortness of breath, increased coughing and/or sputum production, abdominal pain , diarrhea, constipation, pain and/or increased frequency on urination, myalgias , arthralgias, throat pain, or new skin lesions. The rest of the 14-point review of systems is otherwise unremarkable. PHYSICAL EXAMINATION: Shows the most recent vital signs of records with blood pressure of 117/63, 64 beats per minute heart rate, 20 per minute respiratory rate, saturating at 97% on room air, and 98.1 degrees Fahrenheit. Subsequent orthostatic vital signs reveal the patient is orthostatic as described. The patient is however asymptomatic other than mild dizziness on standing. General Appearance: The patient is awake, alert, and oriented x4, not in acute distress. HEENT: Normocephalic, atraumatic. PERRLA. Extraocular muscles intact. Negative for icterus. Moist oral mucosa. Negative throat erythema. Neck is soft, supple, with no cervical lymphadenopathy. No JVD. Heart: S1, S2 within normal limits. Regular rate and rhythm. No murmurs, rubs, or gallops. Chest: Clear to auscultation bilaterally. Good air entry. No wheezes, rales, or rhonchi. Abdomen is soft, nondistended, and nontender. Normoactive bowel sounds x4 quadrants. Extremities: No cyanosis, clubbing, or edema. Psychiatric: No active psychosis, depression, suicidal or homicidal ideations. Skin is warm to touch. TIME SPENT: The total time spent evaluating the patient, reviewing pertinent data, and appropriate documentation is 1 hour. ADDENDUM: Please modify the discharge medications. Instead of losartan 40 mg p.o. daily, the patient will be placed on losartan 25 mg p.o. daily given the unavailability of the previous dose to be dispensed by our local pharmacy. [id number] #: [id number]/CPS #: [id number] [facility]
--- NOTE | 2019-03-13 19:42 | DS ---
DISCHARGE SUMMARY: ADDENDUM: Please modify the discharge medications. Instead of losartan 40 mg p.o. daily, the patient will be placed on losartan 25 mg p.o. daily given the unavailability of the previous dose to be dispensed by our local pharmacy. [id number] #: [id number] [facility]
== END 2019-03-13 14:50 | disposition home or self-care (01) | DRG 641 ==
LOC: ED 19:52 → ICU 22:19 → MEDTELE 03-11 21:52
PROVIDERS: ADMIT Internal Medicine; ATTEND Student in an Organized Health Care Education/Training Program
DX: E87.1 Hypo-osmolality and hyponatremia (principal); E87.8 Other disorders of electrolyte and fluid balance, not elsewhere classified; E83.42 Hypomagnesemia; I95.1 Orthostatic hypotension; F10.229 Alcohol dependence with intoxication, unspecified; Y90.4 Blood alcohol level of 80-99 mg/100 ml; I25.10 Atherosclerotic heart disease of native coronary artery without angina pectoris; I10 Essential (primary) hypertension; I08.3 Combined rheumatic disorders of mitral, aortic and tricuspid valves; E86.0 Dehydration; Z79.899 Other long term (current) drug therapy; Z80.1 Family history of malignant neoplasm of trachea, bronchus and lung; Z84.1 Family history of disorders of kidney and ureter; Z87.891 Personal history of nicotine dependence
CPT/HCPCS: 36415; 71045; 80048; 80053; 80307; 80320; 80329; 81003; 81015; 82533; 82570; 83605; 83735; 83930; 83935; 84100; 84133; 84300; 84439; 84443; 84484; 84540; 85025; 85379; 85610; 85730; 87040; 87086; 87641; 93005; 99285; A9270-GY; G0480; G8978-GP-CH; G8979-GP-CH; G8980-GP-CH; J1644; J2060; J3411; J3475